=== PATIENT | female | born 1980 | race African-American/Black ===

== ENCOUNTER 2018-01-15 06:24 | Day surgery (SDC) | payer OTHER, MEDICAID ==
[2018-01-15] MEDS: SOD CHLORIDE 0.9% 1,000 ML IV (06:00)
[~2018-01-15 06:24] MED LIST: CEFAZOLIN 2 GM/50 ML (PMX) 50 ML IVPB; SOD CHLORIDE 0.9% 1,000 ML IV
[2018-01-15] MEDS ORDERED: LIDOCAINE 2% (SDV) 5 ML INJ (07:00)
[2018-01-15] MEDS ORDERED: ROCURONIUM 50 MG INJ ×2 (07:00→14:22)
[2018-01-15] MEDS ORDERED: GLYCOPYRROLATE 0.4 MG INJ ×2 (07:00→14:22)
[2018-01-15 10:45] LABS: ADD MAN DIFF? NO
[2018-01-15 10:50] LABS: ALANINE AMINOTRANSFERASE 29 IU/L (13-69); ALBUMIN/GLOBULIN RATIO 1.14; ALKALINE PHOSPHATASE 69 IU/L (42-121); ANION GAP 10 (5-13); ASPARTATE AMINO TRANSFERASE 28 IU/L (15-46); BILIRUBIN,INDIRECT 0.7 mg/dl (0-1.1); BILIRUBIN,TOTAL 0.7 mg/dl (0.2-1.3); BLOOD UREA NITROGEN 11 mg/dl (7-20); CALCIUM 8.9 mg/dl (8.4-10.2); CARBON DIOXIDE 27 mmol/L (21-31); CHLORIDE 106 mmol/L (97-110); Estimated GFR > 60 mL/min (>60); GLUCOSE 83 mg/dl (70-220); INR 1.06; PARTIAL THROMBOPLASTIN TIME 30.3 Sec (23.0-35.0); POTASSIUM 4.1 mmol/L (3.5-5.1); PROTIME 13.9 Sec (11.9-14.9); PT RATIO 1.1; SODIUM 143 mmol/L (135-144); TOTAL PROTEIN 7.5 g/dl (6.1-8.1)
[2018-01-15 11:43] LABS: BASOPHILS % 0.4 % (0.0-2.0); EOSINOPHILS # 0.1 10^3/ul (0.0-0.5); EOSINOPHILS % 2.4 % (0.0-7.0); HEMATOCRIT 37.1 % (37.0-47.0); HEMOGLOBIN 11.6 g/dl (12.0-16.0); LYMPHOCYTES % 38.4 % (15.0-51.0); MEAN CORPUSCULAR HEMOGLOBIN 26.4 pg (29.0-33.0); MEAN CORPUSCULAR HGB CONC 31.3 g/dl (32.0-37.0); MEAN CORPUSCULAR VOLUME 84.5 fl (82.0-101.0); MEAN PLATELET VOLUME 11.8 fl (7.4-10.4); MONOCYTE # 0.5 10^3/ul (0.3-0.9); NEUTROPHIL # 2.6 10^3/ul (1.6-7.5); NEUTROPHILS % 49.6 % (39.0-77.0); PLATELET COUNT 193 10^3/UL (140-415); RED BLOOD COUNT 4.39 10^6/ul (4.20-5.40); RED CELL DISTRIBUTION WIDTH 14.6 % (11.5-14.5)
[2018-01-15 11:43] LABS: WHITE BLOOD COUNT 5.3 10^3/ul (4.8-10.8)
[2018-01-15] MEDS: BUPIVACAINE 0.25% (MPF) 30 ML INJ (14:20)
[2018-01-15] MEDS ORDERED: DEXAMETHASONE 4 MG/ML 1 ML INJ (14:21)
[2018-01-15] MEDS ORDERED: CEFAZOLIN 1 GM INJ (14:21)
[2018-01-15] MEDS ORDERED: PROPOFOL 100 ML (14:21)
[2018-01-15] MEDS ORDERED: NEOSTIGMINE 3 MG/3 ML SYRINGE (14:22)
[2018-01-15] MEDS ORDERED: ONDANSETRON 4 MG INJ (14:22)
[2018-01-15] MEDS: MEPERIDINE 25 MG INJ IV (14:46)
[2018-01-15] MEDS: FENTAnyl 50 MCG/ML VIAL IV (14:54)
[2018-01-15] MEDS ORDERED: KETOROLAC 30 MG INJ IV (15:00)
[2018-01-15] MEDS ORDERED: EPHEDrine SULFATE 50 MG/5 ML SYG IV (15:00)
[2018-01-15] MEDS ORDERED: OXYCODONE/ACETAMINOPHEN (5/325) TAB PO ×2 (15:00)
[2018-01-15] MEDS ORDERED: ALBUTEROL 0.083% (NEB) 2.5 MG/3 ML AMP HHN (15:00)
[2018-01-15] MEDS ORDERED: FENTAnyl 50 MCG/ML VIAL IV ×2 (15:00)
[2018-01-15] MEDS ORDERED: DIPHENHYDRAMINE 50 MG INJ IV (15:00)
[2018-01-15] MEDS ORDERED: ONDANSETRON 4 MG INJ IV (15:00)
[2018-01-15] MEDS ORDERED: MIDAZOLAM 1 MG/ML 2 ML INJ IV (15:00)
[2018-01-15] MEDS ORDERED: LABETALOL HCL 20MG INJ IV (15:00)
[2018-01-15] MEDS ORDERED: hydrALAzine 20 MG INJ IV (15:00)
[2018-01-15] MEDS: CEFAZOLIN 2 GM/50 ML (PMX) 50 ML IVPB (15:01)
[2018-01-15] MEDS: HYDROCODONE/APAP (5/325) TAB PO (15:16)
== END 2018-01-15 18:03 | disposition home or self-care (01) ==
LOC: SDS 06:24
DX: D24.1 Benign neoplasm of right breast (principal)
CPT/HCPCS: 19301; 80053; 85025; 85610; 85730; 88307